=== PATIENT | female | born 1995 | race Caucasian/White ===

== ENCOUNTER 2020-11-09 12:56 | Emergency (ER) | payer OTHER ==
[2020-11-09 14:16] LABS: BILIRUBIN NEGATIVE (NEGATIVE); BLOOD 3+ Ery/uL (NEGATIVE); CLARITY CLEAR (CLEAR); COLOR YELLOW (YELLOW); GLUCOSE (U) NORMAL (NORMAL); LEUKOCYTES 1+ Leu/uL (NEGATIVE); NITRITE NEGATIVE (NEGATIVE); PROTEIN TRACE (LOW) mg/dL (NEGATIVE); SPECIFIC GRAVITY 1.025 (1.001-1.030); UROBILINOGEN 0.2 mg/dL (0.2-1.0); pH 5.5 (5.0-9.0)
[2020-11-09 14:29] LABS: BASOPHIL 0.3 % (0-2); EOSINOPHIL 2.1 % (0-5); HCT 45.7 % (37.0-47.0); HGB 15.8 g/dl (12.5-16.0); LYMPHOCYTE 27.2 % (15-48); MCHC 34.6 g/dL (32.0-36.0); MCV 89.8 fL (78.0-100.0); MONOCYTE 10.2 % (0-12); NEUTROPHIL 59.8 % (41-80); NRBC 0; PLT 319 K/uL (150-400); RBC 5.09 M/uL (4.20-5.40); RDW 12.2 % (11.5-14.0); WBC 10.9 K/uL (4.0-10.5)
[2020-11-09 14:44] LABS: ALBUMIN 4.1 g/dL (3.4-5.0); BILIRUBIN - TOTAL 0.6 mg/dL (0.2-1.0); BUN/CREAT RATIO (CALC) 15.4 RATIO; CREATININE 0.65 mg/dL (0.51-0.95); GLOBULIN (CALCULATION) 3.9 g/dL; POTASSIUM 4.6 mmol/L (3.5-5.1)
[2020-11-09 14:51] LABS: URINARY RBC TNTC
[2020-11-09 14:54] LABS: BACTERIA TRACE
[2020-11-09] MEDS ORDERED: MOTRIN600 MG PO (18:10)
== END 2020-11-09 18:25 | disposition home or self-care (01) ==
LOC: FER 12:56
PROVIDERS: Physician Assistant
DX: N93.8 Other specified abnormal uterine and vaginal bleeding (principal); F17.210 Nicotine dependence, cigarettes, uncomplicated
CPT/HCPCS: 36415; 76830; 80053; 81001; 85025; Q9967